=== PATIENT | female | born 1955 | race Caucasian/White ===

== ENCOUNTER 2025-04-28 21:54 | Emergency (ER) | payer MEDICARE, OTHER, SELFPAY ==
[2025-04-28 21:58] VITALS: BP 182/69
[2025-04-28 22:24] VITALS: BP 144/48
[2025-04-28 22:31] VITALS: BMI 30.5
[2025-04-28 22:38] LABS: Hematocrit 37.7 % (37.0-47.0); Hemoglobin 12.4 g/dL (12.0-16.0); Mean Corp Hgb Conc. 32.9 g/dL (33.0-37.0); Mean Corpuscular Volume 92.0 fL (81.0-99.0); Nucleated Red Blood Cells % 0 %; Platelet Count 245 10^3/uL (130-400); Red Cell Dist. Width 13.6 % (11.5-14.5); Urine Character Slightly Cloudy (Clear)
[2025-04-28 22:44] LABS: Urine Red Blood Cell >100 /HPF (0-2)
[2025-04-28 23:00] VITALS: BP 142/94
[2025-04-28 23:01] LABS: ALT (SGPT) 19 U/L (0-35); AST (SGOT) 26 U/L (14-36); Albumin 4.2 g/dl (3.5-5.0); Alkaline Phosphatase 65 U/L (38-126); Blood Urea Nitrogen 35 mg/dl (7-17); Calcium 10.3 mg/dl (8.4-10.2); Carbon Dioxide 29 mmol/L (22-30); Chloride 107 mmol/L (98-107); Estimated Creatinine Clearance 34 ml/min; Glucose 133 mg/dl (70-99); Lipase 156 U/L (23-300); Potassium 3.8 mmol/L (3.5-5.1); Sodium 142 mmol/L (135-145); Total Protein 6.7 g/dl (6.3-8.2); eGFR 37.03
--- NOTE | 2025-04-28 23:05 | ED.GENMED ---
History of Present Illness
General
Chief Complaint: Abdominal Symptoms
Source: patient and spouse
Exam Limitations: none
Time Seen by Provider: 04/28/25 22:44
Nursing documentation reviewed up to this point in time: agreed with
History of Present Illness
History of Present Illness:
The patient is a 69-year-old female with a medical history of hyperlipidemia, hypertension, hypothyroidism, chronic kidney disease, and previous kidney stones, who presented with right flank pain radiating to right upper to right mid abdomen
accompanied with nausea and vomiting starting earlier this evening around 6:30�7:00 PM. She describes the pain as radiating from the front to the back on the right side. She reported vomiting a few times after the onset of pain. The pain preceded
the nausea and vomiting. Additionally, she mentioned having a recent ultrasound of her kidneys due to a follow-up appointment with her urologist scheduled for this coming Tuesday. She has history of chronic kidney disease described as decreased
function of her left kidney related to previous kidney stone. The most recent renal ultrasound apparently showed a stone in her left kidney but not her right. The patient has a history of two surgeries for kidney stone removal in the past. She
denies fever, diarrhea, or recent antibiotic use but applied a heating pad for pain relief. She has not taken anything for pain. Pain is currently markedly improved but has not completely resolved. Nausea has improved as well.
She denies diarrhea. She does admit to mild constipation, has not passed a bowel movement today but normal bowel movement yesterday.
The patient also recounted episodes of fainting, occurring first in February 20 and most recently last Tuesday. Both episodes occurred while out at a restaurant. Both episode noted to have prodromal symptoms of lightheadedness, tunnel vision, pallor
and diaphoresis. She also noted some palpitations but no chest pain, no shortness of breath. After the episode of syncope February 20, she was evaluated at [place] emergency department. Syncope was thought to be related to dehydration. She states
serial cardiac enzymes were negative. She was discharged from the ED that day. She had another fainting episode during breakfast last Tuesday, described as feeling lightheaded, sweaty, and having tunnel vision. She felt the symptoms coming on,
placed her head down on the table and according to her passed out for a few seconds then was able to bring her head up, seemed momentarily dazed but then back to baseline. There was no seizure activity, no incontinence nor fall.
She does admit to previous syncopal events throughout her life especially in her younger years.
She recently underwent basal cell cancer removal/Mohs procedure left facial/left upper lip 2 days ago.
Her home medications include: Synthroid, amlodipine, sertraline, Zetia, simvastatin, lisinopril, fenofibrate, low-dose aspirin.
Past History
Past History
ED Past Medical History: Cancer (Basal cell skin cancer), HTN, Hypercholesterolemia, Renal failure (Chronic renal insufficiency), Hypothyroidism and Other (Kidney stones)
ED Past Surgical History: Gynecological (Hysterectomy), Urological (Kidney stone removal) and Other (Thyroidectomy; Mohs for basal cell cancer removal left facial)
Social History
Tobacco: Non-smoker
Alcohol: Occasional
Drug: None
Personal:
Living: with family
Employment: Retired
Family History
Family History: Other (Noncontributory)
Review of Systems
Review of Systems
Allergies reviewed?: Yes
Phy Exam
Physical Exam
Physical Exam:
GENERAL: 69-year-old woman appears her stated age, awake and alert, pleasant, appears in no acute distress. is accompanying.
EYE: pupils equal and reactive. anicteric
NECK: Supple, nontender, no meningismus, no significant adenopathy.
ENT: oral mucosa is moist. No rhinorrhea. V-shaped surgical wound left upper lip/nasolabial region with dry and intact sutures. There is very minimal surrounding punctate ecchymosis as well as minimal local soft tissue swelling. No erythema, no
drainage.
CARDIAC: Regular rate and rhythm. no murmur.
LUNGS: Clear breath sounds bilaterally, no acute respiratory distress, no wheezes/rales/rhonchi
ABDOMEN: Rotund, soft, nondistended, mild tenderness to palpation right lateral flank right lateral mid abdomen, no r/g, no cvat. Mildly hyperactive bowel sounds.
NEUROLOGICAL: Alert and oriented x3, no focal neuro deficits.
SKIN: Warm and dry, normal color, skin intact. No rash.
MUSCULOSKELETAL: No C/C/E. peripheral pulses are full and equal b/l. No palpable tenderness.
PSYCH: Normal and appropriate interaction.
Course
Orders/Labs/Results
Orders:
Orders
04/28/25 22:06
IV Insert/Care/Rem.- Treatment PRN
Straight cath- Treatment ONCE
04/28/25 22:30
Complete Blood Count/With Diff Urgent
Comprehensive Metabolic Panel Urgent
Lipase Urgent
Urinalysis Reflex To Culture Urgent
Date Specimen was Collected: 04/28/25
Time Specimen was Collected: 22:06
Urine Microscopic Reflex Cult Urgent
Urine Culture Urgent
JO Source: U
Specimen Description:
Date Specimen was Collected: 04/28/25
Time Specimen was Collected: 22:06
04/28/25 23:03
Electrocardiogram (*1) Urgent
Reason for Study: Syncope
EKG- Treatment ONCE
0.9% Sodium Chloride 1000 ml [Nss] 1,000 ml IV BOLUS
Morphine Sulfate 4 mg IV NOW STA
Ondansetron Injectable [Zofran] 4 mg IV NOW STA
04/28/25 23:04
CT Abd/pelvis W Iv Cont Urgent
Comment:
Reason For Exam: acute R sided abd pain w N/V
04/28/25 23:16
Troponin I Urgent
Abnormal Lab Results
04/28/25
22:30
WBC 11.2 H 10^3/uL
(4.8-10.8)
RBC 4.10 L 10^6/uL
(4.20-5.40)
MCHC 32.9 L g/dL
(33.0-37.0)
MPV 10.7 H fL
(7.4-10.4)
Absolute Neuts (auto) 9.3 H 10^3/uL
(1.4-6.5)
Neutrophils % 82.7 H %
(42.2-75.2)
Lymphocytes % 10.3 L %
(20.5-51.1)
BUN 35 H mg/dl
(7-17)
Creatinine 1.5 H mg/dL
(0.6-1.0)
Glucose 133 H mg/dl
(70-99)
Calcium 10.3 H mg/dl
(8.4-10.2)
Ur Occult Blood Reflex 4+ A
(Negative)
Leukocyte Esterase Rfl 1+ A
(Negative)
Urine RBC >100 A /HPF
(0-2)
Urine Bacteria (Reflex) Few A
(Negative)
Urine Albumin (Reflex) 2+ A
(Neg - Trace)
04/28/25 22:30
04/28/25 22:30
Vital Signs
Initial and Last Documented VS:
Initial Vital Signs
Temp Pulse Resp BP Pulse Ox
98.1 F 52 20 182/69 98
04/28/25 21:58 04/28/25 21:58 04/28/25 21:58 04/28/25 21:58 04/28/25 21:58
Last Documented Vital Signs
Temp Pulse Resp BP Pulse Ox
98.1 F 69 15 124/61 96
04/28/25 21:58 04/29/25 00:41 04/29/25 00:41 04/29/25 00:41 04/29/25 00:41
MDM/Problems Addressed
Differential Diagnosis Includes:
The Differential Diagnosis includes, in no particular order and is not limited to:
1. Nephrolithiasis (Kidney Stone)
2. Pyelonephritis
3. Cholelithiasis or Cholecystitis
4. Acute Appendicitis
5. Ureteral Obstruction
6. Dehydration
7. Vasovagal Syncope
8. Electrolyte Imbalance
9. Medication Side Effect
10. Gastroenteritis
11. SBO
MDM/Problems Addressed:
- Acute: Right flank pain, nausea, vomiting, recent fainting episodes
- Chronic: Hyperlipidemia, hypertension, chronic Kidney Disease, History of kidney stones
Will check labs, urinalysis. Will plan for CT abdomen pelvis.
Will medicate for pain and nausea initiate IV fluids.
Will continue cardiac cath lab technologist which currently shows normal sinus rhythm without ectopy.
Due to recent syncopal event, 5 days ago, will check EKG as well as troponin.
Chronic conditions affecting care: Previous abdomnial surgery
*Radiology
Radiology exam reviewed: preliminary read by ED provider and radiology read reviewed (CAT scan shows a 6 mm right UVJ stone with moderate right hydroureteronephrosis. Additional nonobstructing bilateral renal calculi. Note of cholelithiasis
without cholecystitis.)
*Pulse Oximetry
SaO2: 97
Oxygen Mode of Delivery: Room air
Patient hypoxic: no
*EKG
Interpreted by ED Provider?: Yes
Interpretation: normal
Comparison EKG: no comparison EKG present
Rate: normal
Rhythm: sinus
[place]: normal axis
Interval: normal interval
QRS Pattern: normal QRS
Ischemia: no ischemia
*Brick Tender Interpretation
Rate: normal
Interpretation: normal
Rhythm: sinus
*Critical Care Note
Total Time (30-74mins, 75-104mins- exclusive of procedures): Not Applicable
Update Note
Update Note:
01:10
Patient has been reevaluated.
Remains comfortable and pain-free after 1 IV dose of morphine. No further nausea.
CAT scan shows a 6 mm stone right UVJ with moderate hydronephrosis. There is noted incidental gallstones but no evidence of cholecystitis nor biliary obstruction.
Labs are remarkable for minimally elevated white blood cell count of 11.2. BUN and creatinine 35/1.5. Patient has history of chronic kidney disease. I suspect creatinine of 1.5 is her baseline.
Troponin is normal at 0.028.
Urinalysis shows greater than 100 RBCs, few bacteria but only 3-5 WBCs, not consistent with UTI. There is also note of calcium oxalate crystals.
Monitor continues to show normal sinus rhythm without ectopy and EKG is reassuring, unremarkable.
Will discharge to home with a prescription for Percocet for as needed renal colic and Zofran for as needed nausea. Will continue to avoid NSAIDs due to chronic kidney disease.
Discussed importance of staying well-hydrated on a daily basis.
Patient has a scheduled appointment with her urologist for Tuesday. Recommend she touch base with the office today to discuss a sooner appointment as needed.
Encouraged she follow-up with her PCP as well especially in light of syncopal event which sounds vasovagal in nature early February and then again earlier this week.
Return precautions discussed.
ED Attending Note
-
Portions of this chart may have been created with voice recognition software.� Occasional wrong word or��sound alike� substitutions may have occurred due to the inherent limitations of voice recognition software.
Discharge Plan
Departure
Patient Disposition: Home (Routine Discharge)
Date of Disposition: 04/29/25
Time of Disposition: 01:11
Patient with high blood pressure during this ER visit?: No
Condition: Good
Discharge Problem:
Calculus of distal right ureter
Instructions: Kidney stones in adults, Kidney stone diet
Prescriptions:
New
oxycodone-acetaminophen [Percocet] 5-325 mg Tablet
1 tab PO Q4HPRN PRN (Reason: pain) Qty: 10 0RF
ondansetron 4 mg tablet,disintegrating
4 mg PO QID PRN (Reason: nausea and vomiting) Qty: 20 0RF
Referrals:
Blackford,Ellis Pravin, MD [Family Provider, Internal Medicine] - Call in 1-3 days for appt
Activity Restrictions/Additional Instructions:
Stay well-hydrated on a daily basis.
Call your urologist today to discuss follow-up options, such as earlier appointment versus to keep scheduled appointment on Tuesday.
Interventions
Interventions:
*Risk Screen - Suicide Last Done: 04/28/25 21:58
*General Assessment Last Done: 04/28/25 21:58
*Neglect/Abuse Screening Last Done: 04/28/25 21:58
*ED- Fall Risk Assessment Last Done: 04/28/25 21:58
*ED COVID-19 Vaccine History Last Done: 04/28/25 21:58
RB-Fmstkj-Gnrjvegmcn Assessment Last Done: 04/28/25 22:33
Discharge Date and Time
Print Language: CROATIAN
[2025-04-28] MEDS: MORPHINE SULFATE 4 MG IV (23:17)
[2025-04-28] MEDS: ZOFRAN 4 MG IV (23:18)
[2025-04-28] MEDS: NSS 1000 IV (23:19)
[2025-04-29 00:02] LABS: Troponin I 0.028 ng/ml
[2025-04-29 00:41] VITALS: BP 124/61
== END 2025-04-29 01:36 | disposition home or self-care (01) ==
LOC: EMR 21:54
PROVIDERS: Student in an Organized Health Care Education/Training Program; EMERGENCY PHYSICIAN Emergency Medicine; FAMILY PHYSICIAN Internal Medicine
DX: N20.1 Calculus of ureter (principal); E78.00 Pure hypercholesterolemia, unspecified; I12.9 Hypertensive chronic kidney disease with stage 1 through stage 4 chronic kidney disease, or unspecified chronic kidney disease; N18.9 Chronic kidney disease, unspecified; E03.9 Hypothyroidism, unspecified; Z85.828 Personal history of other malignant neoplasm of skin; Z87.441 Personal history of nephrotic syndrome; Z87.442 Personal history of urinary calculi; Z90.710 Acquired absence of both cervix and uterus
CPT/HCPCS: 99284; 74177; 80053; 81003; 81015; 83690; 84484; 85025; 87086; 93005; Q9967